=== PATIENT | male | born 1980 | race Caucasian/White ===

== ENCOUNTER → 2023-04-03 12:56 | Outpatient (REF) | payer OTHER, SELFPAY | LOC: HWRAD 12:56 | PROVIDERS: ATTENDING PHYSICIAN Internal Medicine Hematology & Oncology; FAMILY PHYSICIAN Internal Medicine | DX: R59.0 Localized enlarged lymph nodes (principal); D72.820 Lymphocytosis (symptomatic) | CPT/HCPCS: 71260; 74177; Q9967 ==

== ENCOUNTER → 2024-12-09 07:49 | Outpatient (REF) | payer OTHER, SELFPAY | LOC: MRI 3T 07:49 | PROVIDERS: ATTENDING PHYSICIAN Internal Medicine Hematology & Oncology; FAMILY PHYSICIAN Internal Medicine | DX: R59.0 Localized enlarged lymph nodes (principal); D72.820 Lymphocytosis (symptomatic) | CPT/HCPCS: 70543; A9585 ==